=== PATIENT | female | born 1990 | race Caucasian/White ===

== ENCOUNTER 2018-10-19 14:36 | Outpatient (CLI) | payer BC, SELFPAY ==
[2018-10-19 15:07] LABS: Abs Immature Grans 0.02 k/cumm (0.0-0.09); Absolute Basophil Count 0.07 k/cumm (0.0-0.2); Absolute Eosinophil Count 0.45 k/cumm (0.0-0.7); Absolute Lymphocyte Count 2.52 k/cumm (1.2-3.4); Absolute Monocyte Count 0.64 k/cumm (0.11-0.7); Absolute Neutrophil Count 3.89 k/cumm (1.2-6.7); Basophils % 0.9; Eosinophils % 5.9; HCT 38.3 % (36.0-46.0); HGB 12.9 g/dL (12.0-15.5); Immature Grans % 0.3; Lymphocytes % 33.2; Mean Corp. HGB Concentration 33.7 g/dL (32.0-36.0); Mean Corpuscular Hemoglobin 30.6 pg (27.0-33.0); Mean Platelet Volume 10.4 fL (8.0-11.0); Monocytes % 8.4; Neutrophils % 51.3; Platelet Count 244 x1000/uL (130-400); RBC 4.21 m/cumm (4.00-5.20); RBC Distribution Width 12.7 % (11.7-14.6); White Blood Cell Count 7.59 k/cumm (4.4-10.8)
[2018-10-19 16:43] LABS: Iron 92 ug/dL (50-175); Total Iron Binding Capacity 317 ug/dL (250-450); Transferrin Sat 29 % (15-50)
[2018-10-19 16:54] LABS: Anion Gap 7.6 mmol/L (3-11); CO2 28.4 mmol/L (21.0-32.0); Chloride 104 mmol/L (98-107); Potassium 4.5 mmol/L (3.5-5.1); Sodium 140 mmol/L (136-145)
== END 2018-10-19 14:56 ==
PROVIDERS: PCP Internal Medicine; Visit Provider Otolaryngology Otolaryngology/Facial Plastic Surgery
DX: R42 Dizziness and giddiness (principal); H93.19 Tinnitus, unspecified ear; H93.A3 Pulsatile tinnitus, bilateral; G44.229 Chronic tension-type headache, not intractable
CPT/HCPCS: 36415; 80051; 83540; 83550; 84443; 85025

== ENCOUNTER 2018-11-27 01:09 | Outpatient (CLI) | payer BC, SELFPAY ==
--- NOTE | 2018-11-27 09:51 | DI.MRI_ITS ---
SYMPTOM/DIAGNOSIS: PULSATILE TINNITUS H93.A3, G44.229 CHRONIC TENSION HEADACHE, DISEQUILIBRIUM R42. TINNITUS H93.19 MR ANGIOGRAPHY OF THE BRAIN: Routine examination was performed. The internal carotid arteries are unremarkable. No evidence of occlusion, aneurysm or significant stenosis is present. The anterior cerebral arteries are unremarkable without evidence of occlusion, aneurysm or significant stenosis. The middle cerebral arteries are unremarkable without evidence of occlusion, aneurysm or significant stenosis. The vertebral arteries and basilar artery are unremarkable without evidence of occlusion, aneurysm or significant stenosis. The posterior cerebral arteries are unremarkable without evidence of occlusion, aneurysm or significant stenosis. IMPRESSION: Unremarkable MR angiography of the brain.
[2018-11-27] MEDS: Normal Saline Flush 10 ML SYR IVP (10:01)
[2018-11-27] MEDS: Gadoterate meglumine 20 ML VIAL 11 ML IVP (10:02)
--- NOTE | 2018-11-27 10:14 | DI.MRI_ITS ---
SYMPTOM/DIAGNOSIS: PULSATILE TINNITUS BOTH EARS, H93.A3, CHRONIC TENSION HEADACHE G44.229, DISEQUILIBRIUM, R42 TINNITUS H93.19 MRI IAC'S AND BRAIN: Pre and post contrast examination was performed. No priors for comparison. The graham/white matter differentiation is unremarkable. There is normal signal in the brain parenchyma. Diffusion weighted images show no evidence of restricted diffusion. Susceptibility images show no evidence of intracranial hemorrhage. The ventricles are intact. The basilar cisterns are patent. No masses are seen in the region of the internal auditory canals or cerebellar pontine angles. The orbits and retro-orbital soft tissues are unremarkable. The visualized paranasal sinuses are clear. There is a normal flow void in the [place] of [place]. Following contrast administration, there is no abnormal enhancement, no intracranial enhancing masses are seen specifically no enhancing masses are seen in the region of the internal auditory canals or cerebellar pontine angles. IMPRESSION: Normal MRI of the brain.
== END 2018-11-27 01:29 ==
PROVIDERS: PCP Internal Medicine; Visit Provider Physician Assistant
DX: H93.A3 Pulsatile tinnitus, bilateral (principal); G44.229 Chronic tension-type headache, not intractable; R42 Dizziness and giddiness
CPT/HCPCS: 70544; 70553